=== PATIENT | male | born 2000 | race Caucasian/White ===

== ENCOUNTER 2022-03-15 05:10 | Emergency (ER) | payer BC, MEDICAID ==
[~2022-03-15] VITALS: Ht 154.9 cm; Wt 75.0 kg
[2022-03-15 05:19] VITALS: BP 131/85
[2022-03-15] MEDS ORDERED: LIDOcaine Viscous 15ml cup MM ONE (06:40)
[2022-03-15] MEDS ORDERED: mag hydrox/Alum hydrox/simeth 30ml oral suspension PO ONE (06:40)
== END 2022-03-15 07:42 | disposition home or self-care (01) ==
LOC: ER 05:12
DX: J02.9 Acute pharyngitis, unspecified (principal); J45.909 Unspecified asthma, uncomplicated
CPT/HCPCS: 87081; 87880; 99283